=== PATIENT | female | born 1995 | race Caucasian/White ===

== ENCOUNTER 2017-08-05 10:33 | Outpatient (CLI) | payer OTHER ==
[2017-08-05] MEDS: LACTATED RINGER'S 1000 ML IV (11:02)
[2017-08-05 11:20] LABS: HEMATOCRIT 31.6 % (36.0-47.0); HEMOGLOBIN 10.5 g/dl (12.0-15.5); MEAN CORPUSCULAR HEMOGLOBIN 27.4 pg (27.0-33.0); MEAN CORPUSCULAR HGB CONC 33.2 g/dl (32.0-36.5); MEAN CORPUSCULAR VOLUME 82.5 fl (80.0-96.0); PLATELET COUNT, AUTOMATED 202 10^3/uL (150-450); RED BLOOD COUNT 3.83 10^6/uL (4.00-5.40); RED CELL DISTRIBUTION WIDTH 14.4 % (11.5-14.5); WHITE BLOOD COUNT 11.6 10^3/uL (4.0-10.0)
[2017-08-05] MEDS: TERBUTALINE SULFATE 1 MG/ML VIAL (J3105) SC (12:11)
== END 2017-08-05 15:00 | disposition home or self-care (01) ==
LOC: M LDO 10:33
DX: O32.1XX1 Maternal care for breech presentation, fetus 1 (principal); Z3A.00 Weeks of gestation of pregnancy not specified
CPT/HCPCS: J3105

== ENCOUNTER 2017-08-18 08:43 | Inpatient (IN) | payer OTHER ==
[2017-08-18 10:51] LABS: HEMATOCRIT 31.2 % (36.0-47.0); HEMOGLOBIN 10.2 g/dl (12.0-15.5); MEAN CORPUSCULAR HEMOGLOBIN 27.5 pg (27.0-33.0); MEAN CORPUSCULAR HGB CONC 32.7 g/dl (32.0-36.5); MEAN CORPUSCULAR VOLUME 84.1 fl (80.0-96.0); PLATELET COUNT, AUTOMATED 180 10^3/uL (150-450); RED BLOOD COUNT 3.71 10^6/uL (4.00-5.40); RED CELL DISTRIBUTION WIDTH 15.1 % (11.5-14.5); WHITE BLOOD COUNT 8.7 10^3/uL (4.0-10.0)
[2017-08-18] MEDS: LR 1,000 ML IV ×4 (11:32→21:10)
[2017-08-18] MEDS: BICITRA 30ML SOLN UDC PO (11:32)
[2017-08-18] MEDS: LACTATED RINGER'S 1000 ML IV (11:32)
[2017-08-18] MEDS: TERBUTALINE SULFATE 1 MG/ML VIAL (J3105) SC (12:01)
[2017-08-18 12:56] LABS: CORD GAS ABE A -9.2; CORD GAS ABE V -8.7; CORD GAS HCO3 A 18.9 MEQ/L; CORD GAS HCO3 V 18.1 MEQ/L; CORD GAS O2 SAT A 77.1 %; CORD GAS O2 SAT V 81.2 %; CORD GAS PCO2 A 49.6 mmHg; CORD GAS PCO2 V 42.2 mmHg; CORD GAS PH A 7.199 UNITS; CORD GAS PH V 7.251 UNITS; CORD GAS PO2 A 41.3 mmHg; CORD GAS PO2 V 43.4 mmHg; CORD GAS SBC A 16.8 MEQ/L; CORD GAS SBC V 17.2 MEQ/L; CORD GAS TCO2 A 20.4 MEQ/L; CORD GAS TCO2 V 19.4 MEQ/L
[2017-08-18] MEDS ORDERED: METOCLOPRAMIDE INJ 10MG/2ML VIAL (J2765) IV ×2 (13:05→13:15)
[2017-08-18] MEDS ORDERED: NALBUPHINE HCL 10 MG/ML AMP (J2300) IV (13:05)
[2017-08-18] MEDS ORDERED: NALOXONE INJ 0.4 MG/1 ML VIAL (J2310) IV ×2 (13:05)
[2017-08-18] MEDS ORDERED: ONDANSETRON 4MG/2ML VIAL (J2405) IV ×2 (13:05→13:30)
[2017-08-18] MEDS ORDERED: MEASLES,MUMPS,RUBELLA VACCINE INJ (MMR-II) (90707) SC (13:15)
[2017-08-18] MEDS ORDERED: PERCOCET 5MG/325MG TAB PO ×2 (13:15→13:30)
[2017-08-18] MEDS ORDERED: RHOGAM 300 MCG (1500 IU) INJ (J2790) IM (13:15)
[2017-08-18] MEDS ORDERED: fentaNYL 100 MCG/2 ML INJECTION (J3010) IV (13:30)
[2017-08-18] MEDS: KETOROLAC 30 MG/ML VIAL (J1885) IV ×3 (14:55→20:15)
[2017-08-18] MEDS: DOCUSATE SODIUM 100 MG CAP PO (20:15)
[2017-08-19] MEDS: KETOROLAC 30 MG/ML VIAL (J1885) IV ×2 (02:45→08:50)
[2017-08-19 06:34] LABS: HEMATOCRIT 25.8 % (36.0-47.0); HEMOGLOBIN 8.6 g/dl (12.0-15.5); MEAN CORPUSCULAR HEMOGLOBIN 27.7 pg (27.0-33.0); MEAN CORPUSCULAR HGB CONC 33.3 g/dl (32.0-36.5); MEAN CORPUSCULAR VOLUME 83.2 fl (80.0-96.0); PLATELET COUNT, AUTOMATED 155 10^3/uL (150-450); RED CELL DISTRIBUTION WIDTH 15.3 % (11.5-14.5); WHITE BLOOD COUNT 12.9 10^3/uL (4.0-10.0)
[2017-08-19] MEDS: PRENATAL VITAMINS CHEWABLE TABLET PO (08:49)
[2017-08-19] MEDS: DOCUSATE SODIUM 100 MG CAP PO ×2 (08:49→21:41)
[2017-08-19] MEDS: LR 1,000 ML IV ×2 (08:50→13:10)
[2017-08-19] MEDS: LR 500 ML IV (08:50)
[2017-08-19] MEDS: IBUPROFEN 800 MG TAB PO ×2 (15:42→23:22)
[2017-08-19] MEDS: PERCOCET 5MG/325MG TAB PO (21:50)
[2017-08-20] MEDS: DOCUSATE SODIUM 100 MG CAP PO (08:06)
[2017-08-20] MEDS: PRENATAL VITAMINS CHEWABLE TABLET PO (08:06)
[2017-08-20] MEDS: IBUPROFEN 800 MG TAB PO (08:07)
== END 2017-08-20 12:20 | disposition home or self-care (01) | DRG 766 ==
LOC: M LDO 08:43 → M LDI 09:31 → M OBS 14:21
PROVIDERS: Obstetrics & Gynecology
PROC: 10D00Z1 Extraction of Products of Conception, Low, Open Approach (ICD-10-PCS; principal; 2017-08-18)
DX: O32.1XX0 Maternal care for breech presentation, not applicable or unspecified (principal); Z37.0 Single live birth; Z3A.39 39 weeks gestation of pregnancy